=== PATIENT | male | born 1965 | race Caucasian/White ===

== ENCOUNTER 2018-09-05 15:09 | Emergency (ER) | payer OTHER ==
[2018-09-05 15:30] VITALS: BP 182/79; PULSE 88; TEMP 98.5; BMI 30.4
[2018-09-05] MEDS ORDERED: hydrOXYzine PAMOATE 25 MG CAPSULE (FP) PO ONE (16:34)
[2018-09-05] MEDS ORDERED: KETOROLAC TROMETHAMINE 60 MG/2 ML VIAL ONE (16:35)
[2018-09-05] MEDS ORDERED: LIDOCAINE HCL 1%, 10 MG/ML (20ML VIAL) ONE (16:40)
[2018-09-05] MEDS ORDERED: BUPIVACAINE HCL/PF 0.5% (5MG/ML) 10 ML VIAL ONE (16:40)
--- NOTE | 2018-09-05 16:44 | PDOC ---
History of Present Illness - General History Source: Patient Exam Limitations: No Limitations - History of Present Illness Initial Comments: 09/05/18 16:49 The patient is a 53 year old male, with no significant PMH, who presents to the emergency department with a sudden onset of knee pain beginning 2 days ago that progressively worsened today. The patient states the constant non radiating pain is located to the right knee with associated symptoms of swelling and pressure sensation. The patient states he goes to PT for both of his knees but reports no improvement. The patient notes decrease ability to ambulate and difficulty bending his right knee, no relief with Tylenol. He denies any trauma prior to the pain. The patient denies any numbness or tingling. The patient denies chest pain, shortness of breath, headache and dizziness. Denies fever, chills, nausea, vomit, diarrhea and constipation. Allergies: NKDA Past surgical history: None reported Social history: None reported PCP: None reported <Janeth Romero - Last Filed: 09/05/18 16:49> <Ed Palmer - Last Filed: 09/05/18 17:47> - General Chief Complaint: Pain Stated Complaint: RT KNEE PAIN Time Seen by Provider: 09/05/18 15:32 Past History <Janeth Romero - Last Filed: 09/05/18 16:49> - Past Medical History Anemia: No Asthma: No Cancer: No Cardiac Disorders: No COPD: No HTN: Yes Kidney Stones: No Liver Disease: No - Surgical History Abdominal Surgery: No Appendectomy: No Cardiac Surgery: No - Suicide/Smoking/Psychosocial Hx Smoking Status: No Smoking History: Never smoked Have you smoked in the past 12 months: No Number of Cigarettes Smoked Daily: 0 Information on smoking cessation initiated: No Hx Alcohol Use: Yes Drug/Substance Use Hx: No Substance Use Type: Alcohol <Ed Palmer - Last Filed: 09/05/18 17:47> - Past Medical History Allergies/Adverse Reactions: Allergies Allergy/AdvReac Type Severity Reaction Status Date / Time No Known Allergies Allergy Verified 07/16/16 17:08 Home Medications: Ambulatory Orders Ibuprofen 800 mg PO TID #30 tablet 09/05/18 Review of Systems - Review of Systems Able to Perform ROS?: Yes Comments:: 09/05/18 16:50 GENERAL/CONSTITUTIONAL: No fever or chills. No weakness. HEAD, EYES, EARS, NOSE AND THROAT: No change in vision. No ear pain or discharge. No sore throat. CARDIOVASCULAR: No chest pain or shortness of breath. RESPIRATORY: No cough, wheezing, or hemoptysis. GASTROINTESTINAL: No nausea, vomiting, diarrhea or constipation. GENITOURINARY: No dysuria, frequency, or change in urination. MUSCULOSKELETAL: + right knee pain. No neck or back pain. SKIN: No rash NEUROLOGIC: No headache, vertigo, loss of consciousness, or change in strength/ sensation. ENDOCRINE: No increased thirst. No abnormal weight change. HEMATOLOGIC/LYMPHATIC: No anemia, easy bleeding, or history of blood clots. ALLERGIC/IMMUNOLOGIC: No hives or skin allergy. <Janeth Romero - Last Filed: 09/05/18 16:49> *Physical Exam - Vital Signs Last Vital Signs Temp Pulse Resp BP Pulse Ox 98.5 F 88 20 182/79 H 100 09/05/18 15:10 09/05/18 15:10 09/05/18 15:10 09/05/18 15:10 09/05/18 15:10 - Physical Exam Comments: 09/05/18 16:51 GENERAL: Awake, alert, and fully oriented, in no acute distress HEAD: No signs of trauma LUNGS: Breath sounds equal, clear to auscultation bilaterally. No wheezes, and no crackles HEART: Regular rate and rhythm, normal S1 and S2, no murmurs, rubs or gallops EXTREMITIES: +Right knee large effusion no deformities, no erythema. Moderate warmth. Meniscus ligament unable to evaluate secondary to effusion and guarding.Distal pulse intact. No calf swelling or tenderness. SKIN: Warm, Dry, normal turgor, no rashes or lesions noted. <Janeth Romero - Last Filed: 09/05/18 16:49> - Vital Signs Last Vital Signs Temp Pulse Resp BP Pulse Ox 98.5 F 88 20 182/79 H 100 09/05/18 15:10 09/05/18 15:10 09/05/18 15:10 09/05/18 15:10 09/05/18 15:10 <Ed Palmer - Last Filed: 09/05/18 17:47> Moderate Sedation - Procedure Monitoring Vital Signs: Procedure Monitoring Vital Signs Temperature 98.5 F 09/05/18 15:10 Pulse Rate 88 09/05/18 15:10 Respiratory Rate 20 09/05/18 15:10 Blood Pressure 182/79 H 09/05/18 15:10 O2 Sat by Pulse Oximetry (%) 100 09/05/18 15:10 <Janeth Romero - Last Filed: 09/05/18 16:49> - Procedure Monitoring Vital Signs: Procedure Monitoring Vital Signs Temperature 98.5 F 09/05/18 15:10 Pulse Rate 88 09/05/18 15:10 Respiratory Rate 20 09/05/18 15:10 Blood Pressure 182/79 H 09/05/18 15:10 O2 Sat by Pulse Oximetry (%) 100 09/05/18 15:10 <Ed Palmer - Last Filed: 09/05/18 17:47> ED Treatment Course - LABORATORY CBC & Chemistry Diagram: 09/05/18 16:50 09/05/18 16:50 <Ed Palmer - Last Filed: 09/05/18 17:47> *DC/Admit/Observation/Transfer - Attestations Scribe Attestion: 09/05/18 16:51 Documentation prepared by Janeth Romero, acting as bio medical technician for Ed Zarate MD. <Janeth Romero - Last Filed: 09/05/18 16:49> - Discharge Dispostion Decision to Admit order: No <Ed Palmer - Last Filed: 09/05/18 17:47> Diagnosis at time of Disposition: Gout Qualifiers: Gout site: knee Gout etiology: drug-induced Chronicity: acute Laterality: right Qualified Code(s): M10.261 - Drug-induced gout, right knee - Discharge Dispostion Disposition: HOME Condition at time of disposition: Improved - Prescriptions Prescriptions: Ibuprofen 800 mg PO TID #30 tablet - Patient Instructions Printed Discharge Instructions: Low-Purine Diet, DI for Gout Additional Instructions: Stop your Chlorthaladone as this medicine can cause gout. follow low purine diet no alcoholic beverages See your primary care doctor to determine if substitute blood pressure medicine is needed. Recheck BP 1-2 days.
[2018-09-05 17:09] LABS: HEMATOCRIT 39.7 % (35.4-49); HEMOGLOBIN 13.2 GM/dl (11.7-16.9); LYMPH % 19.8 % (8-40); MCH 29.1 pg (25.7-33.7); MCHC 33.3 g/dl (32.0-35.9); MEAN CELL VOLUME 87.3 fl (80-96); MEAN PLT VOLUME 10.2 fl (7.5-11.1); MONO % 12.2 % (3.8-10.2); PLATELET COUNT 212 K/MM3 (134-434); RBC 4.54 M/mm3 (4.00-5.60); RDW 13.4 % (11.9-15.9); WHITE BLOOD COUNT 11.3 K/mm3 (4.0-10.8)
[2018-09-05 17:14] LABS: ALBUMIN 4.1 g/dl (3.5-5.0); ALK PHOS 74 U/L (32-92); ANION GAP 8 MMOL/L (8-16); BILIRUBIN,TOTAL 1.3 mg/dl (0.2-1.0); BLOOD UREA NITROGEN 18 mg/dl (7-18); CALCIUM 8.7 mg/dl (8.4-10.2); CHLORIDE 105 mmol/L (98-107); CO2 24 mmol/L (22-28); CREATININE 1.5 mg/dl (0.6-1.3); GLUCOSE,RANDOM 105 mg/dl (74-106); POTASSIUM 3.5 mmol/L (3.5-5.1); SGOT/AST 20 U/L (10-42); SGPT/ALT 19 U/L (10-40); SODIUM 137 mmol/L (136-145); TOT PROT 7.7 g/dl (6.4-8.3)
[2018-09-05 20:29] LABS: SYNOVIAL FLUID RBC 2632 /mm3; SYNOVIAL FLUID SOURCE SYNOVIAL FLUID
[2018-09-05 21:01] LABS: SYNOVIAL FLUID LYMPHOCYTES 5 %; SYNOVIAL FLUID MONOCYTES 13 %; SYNOVIAL FLUID NEUTROPHILS 82 %
== END 2018-09-05 18:30 | disposition home or self-care (01) ==
LOC: FER 15:09
DX: M10.261 Drug-induced gout, right knee (principal); I10 Essential (primary) hypertension
CPT/HCPCS: 36415; 80053; 82945; 84550; 85025; 87070; 87075; 87205; 89051; 89060; 99282-25

== ENCOUNTER 2019-08-20 17:54 | Emergency (ER) | payer OTHER ==
[2019-08-20 18:38] VITALS: BP 142/89; PULSE 92; TEMP 98.2; BMI 31.9
--- NOTE | 2019-08-20 19:27 | PDOC ---
History of Present Illness - General Chief Complaint: Alcohol intoxication Stated Complaint: INTOXICATED Time Seen by Provider: 08/20/19 19:17 History Source: Patient Exam Limitations: No Limitations - History of Present Illness Initial Comments: 08/20/19 19:28 Patient is a 54M with history of L hip replacement brought in today for intoxication by [employer]. Patient states that he drank a large amount of liquor today. Denies headache, chest pain, shortness of breath, abdominal pain, leg pain, dysuria. Patient is intoxicated and refuses to answer question. Patient put urine on hand and purposely exposed staff member's hand to that urine. No other complaints from patient. Past History - Past Medical History Allergies/Adverse Reactions: Allergies Allergy/AdvReac Type Severity Reaction Status Date / Time No Known Allergies Allergy Verified 07/16/16 17:08 Home Medications: Ambulatory Orders Ibuprofen 800 mg PO TID #30 tablet 09/05/18 Anemia: No Asthma: No Cancer: No Cardiac Disorders: No COPD: No HTN: Yes Kidney Stones: No Liver Disease: No - Surgical History Abdominal Surgery: No Appendectomy: No Cardiac Surgery: No - Psycho Social/Smoking Cessation Hx Smoking Status: No Smoking History: Unknown if ever smoked Have you smoked in the past 12 months: No Number of Cigarettes Smoked Daily: 0 Hx Alcohol Use: Yes Drug/Substance Use Hx: Yes Substance Use Type: Alcohol Review of Systems - Review of Systems Able to Perform ROS?: No (2/2 patient intoxication) *Physical Exam - Vital Signs Last Vital Signs Temp Pulse Resp BP Pulse Ox 98.2 F 92 H 18 142/89 95 08/20/19 18:15 08/20/19 18:15 08/20/19 18:15 08/20/19 18:15 08/20/19 18:15 - Physical Exam Comments: 08/20/19 20:02 GENERAL: Awake, alert, and fully oriented, in no acute distress, intoxicated HEAD: No signs of trauma, normocephalic, atraumatic EYES: PERRLA, EOMI, sclera anicteric, conjunctiva clear ENT: Auricles normal inspection, hearing grossly normal, nares patent, oropharynx clear without exudates. Moist mucosa NECK: Normal ROM, supple, no lymphadenopathy, JVD, or masses LUNGS: No distress, speaks full sentences, clear to auscultation bilaterally HEART: Regular rate and rhythm, normal S1 and S2, no murmurs, rubs or gallops, peripheral pulses normal and equal bilaterally. ABDOMEN: Soft, nontender, normoactive bowel sounds. No guarding, no rebound. No masses EXTREMITIES: Normal inspection, Normal range of motion, no edema. No clubbing or cyanosis. NEUROLOGICAL: Cranial nerves II through XII grossly intact. Normal speech, normal gait, no focal sensorimotor deficits PSYCH: Denies SI/HI. SKIN: Warm, Dry, normal turgor, no rashes or lesions noted. Medical Decision Making - Medical Decision Making 08/20/19 20:04 Patient is 54M here today with alcohol intoxication. Vitals normal and stable. No other complaints. Patient is alert and oriented, but refuses to state a plan for going home. Will monitor for sobriety. 08/20/19 20:54 Patient tolerating PO. Ambulating without difficulty. No slurred speech. Patient [place] he [place] about 1 [address] from the hospital. Will discharge home. Discharge - Discharge Information Problems reviewed: Yes Clinical Impression/Diagnosis: Alcohol intoxication Condition: Good Disposition: HOME - Admission No - Follow up/Referral - Patient Discharge Instructions Patient Printed Discharge Instructions: DI for Alcohol Abuse Additional Instructions: Please avoid drinking alcohol in the future. Please return to the ED if you have any new, worsening or concerning symptoms, especially fever, chills, and increasing pain. [facility] is available for alcohol rehab, they are at [address] [facility]. Their phone number [phone] - Post Discharge Activity
--- NOTE | 2019-08-20 19:31 | PDOC ---
Attending Attestation - Resident Resident Name: Marcelino Segovia - ED Attending Attestation I have performed the following: I have examined & evaluated the patient, The case was reviewed & discussed with the resident, I agree w/resident's findings & plan, Exceptions are as noted - HPI HPI: 08/20/19 20:04 Mr. Susanne Mckinney is a 54-year-old male presenting to the emergency department accompanied by police officers due to intoxication Pt states he came to the attention of the police because he got into a verbal altercation with "some kids" Patient denies traumatic injury Patient denies chest or abdominal pain, nausea or vomiting - Physicial Exam PE: 08/20/19 20:05 On examination: Patient is awake and alert He is walking throughout the emergency department, speaking but his speech is slurred, and largely he is unable to answer questions appropriately Moist mucous membrane Heart is regular rate and rhythm Lungs are clear to auscultation No abdominal tenderness Moving all extremities with no limitation No obvious deformities - Medical Decision Making 08/20/19 20:06 54-year-old male presenting to the emergency department accompanied by police officers due to public intoxication Currently there are no signs of traumatic injury Patient is ambulatory throughout the department with no limitation Speech is slurred At this moment he is an unsafe discharge as he is unable to disclose to us his address and is not willing to give us the name and number of a family member who could accompany him home We will continue to observe for sobriety 08/20/19 21:29 Pt able to give me his address and is ambulatory with a steady gait Will discharge to home Follow up with PMD Return to the ER for any other concerns or complaints
== END 2019-08-20 21:29 | disposition home or self-care (01) ==
LOC: JER 17:54
DX: F10.120 Alcohol abuse with intoxication, uncomplicated (principal); Y90.9 Presence of alcohol in blood, level not specified; I10 Essential (primary) hypertension; Z96.642 Presence of left artificial hip joint
CPT/HCPCS: 99281-25

== ENCOUNTER 2022-09-18 18:01 | Emergency (ER) | payer OTHER ==
[2022-09-18 18:42] VITALS: BP 141/98; PULSE 64; RESP 16; TEMP 98.5; BMI 35.7
== END 2022-09-18 19:31 | disposition home or self-care (01) ==
LOC: FER 18:01
DX: R05.1 Acute cough (principal); J02.9 Acute pharyngitis, unspecified; M79.10 Myalgia, unspecified site
CPT/HCPCS: 99281-25